=== PATIENT | male | born 1965 ===

== ENCOUNTER → 2023-01-20 | Outpatient (CLI) | payer MEDICARE ==
[2023-01-20 07:53] LABS: Basophils # (auto) 0 10 ^3/uL (0-0.2); Basophils % (auto) 0.3 % (0.0-2.0); Eosinophils # (auto) 0.1 10 ^3/uL (0-0.8); Eosinophils % (auto) 1.1 % (0.0-7.0); Hematocrit 44.2 % (41.0-53.0); Hemoglobin 15.3 g/dL (13.5-17.5); Lymphocytes # (auto) 2.1 10 ^3/uL (0.4-5.4); Lymphocytes % (auto) 31.2 % (10.0-50.0); Mean Corpuscular Hemoglobin 30.2 pg (28.0-32.0); Mean Corpuscular Hgb Conc. 34.6 g/dL (32.0-36.0); Mean Corpuscular Volume 87.3 fL (80.0-100.0); Monocytes # (auto) 0.7 10 ^3/uL (0-1.3); Monocytes % (auto) 10.4 % (0.0-12.0); Neutrophils # (auto) 3.9 10 ^3/uL (1.6-8.6); Nucleated Red Blood Cells % 0.1 %; Red Blood Cells 5.06 10^6/uL (4.5-5.90); Red Cell Distribution Width 12.7 % (11.8-14.3); White Blood Cell 6.9 10^3/uL (4.4-10.8)
[2023-01-20 08:30] LABS: Cholesterol 125 mg/dL (< 200); HDL Cholesterol 31 mg/dL (40-59); LDL Cholesterol 80 mg/dL (< 100); Triglycerides 128 mg/dL (< 150)
[2023-01-20 09:18] LABS: Micro Albumin 12.2 mg/L (0-30.0)
[2023-01-24 14:05] LABS: Hepatitis A Ab IgM Negative
[2023-01-24 14:06] LABS: Hepatitis B Core IgM Negative; Hepatitis C Antibody Negative (Negative)
== END | disposition home or self-care (01) ==
LOC: LAB 07:20
PROVIDERS: ATTEND Student in an Organized Health Care Education/Training Program
DX: Z12.11 Encounter for screening for malignant neoplasm of colon (principal); E11.9 Type 2 diabetes mellitus without complications; F10.11 Alcohol abuse, in remission; Z87.19 Personal history of other diseases of the digestive system
CPT/HCPCS: 36415; 80061; 80074; 82043; 82274; 82570; 83036; 85025